=== PATIENT | female | born 1975 | race African-American/Black ===

== ENCOUNTER 2020-11-01 05:54 | Inpatient (IN) ==
[2020-11-01] MEDS ORDERED: VANCOMYCIN INJ 1,000 MG in SODIUM CHLORIDE 0.9% 250 ML IV ONE (06:30)
[2020-11-01] MEDS ORDERED: ceFAZolin 1,000 MG in SYRINGE 1 EACH IV ONE (07:30)
[2020-11-01] MEDS ORDERED: LACTATED RINGERS 1,000 ML IV SCH (07:30)
[2020-11-01] MEDS ORDERED: DIAZEPAM 5 MG TABLET PO ONE (07:57)
[2020-11-01] MEDS ORDERED: ACETAMINOPHEN 500 MG TABLET PO ONE (07:57)
[2020-11-01] MEDS ORDERED: FAMOTIDINE 20 MG TABLET PO ONE (07:57)
[2020-11-01] MEDS ORDERED: GABAPENTIN 400 MG CAPSULE PO ONE (07:57)
[2020-11-01] MEDS ORDERED: DEXAMETHASONE 4 MG/1 ML VIAL ONE (08:47)
[2020-11-01] MEDS ORDERED: DEXMEDETOMIDINE 200 MCG/2 ML VIAL ONE (08:47)
[2020-11-01] MEDS ORDERED: LIDOCAINE 1% 5 ML VIAL ONE (08:47)
[2020-11-01] MEDS ORDERED: ROPIVACAINE 0.5% 30 ML VIAL ONE (08:47)
[2020-11-01] MEDS ORDERED: MIDAZOLAM 2 MG/2 ML VIAL ONE (08:48)
[2020-11-01] MEDS ORDERED: BUPIVACAINE SPINAL 0.75% 2 ML AMP SPINAL ONE (09:12)
[2020-11-01] MEDS ORDERED: fentaNYL 100 MCG/2 ML VIAL ONE (10:52)
[2020-11-01] MEDS ORDERED: SEVOFLURANE 1 UNIT/15 MINUTE INH ONE ×4 (11:28→12:48)
[2020-11-01] MEDS ORDERED: LIDOCAINE 2% 5 ML VIAL ONE (11:28)
[2020-11-01] MEDS ORDERED: TRANEXAMIC ACID 1,000 MG/10 ML VIAL ONE (11:28)
[2020-11-01] MEDS ORDERED: propofoL 200 MG/20 ML VIAL IV ONE (11:28)
[2020-11-01] MEDS ORDERED: PHENYLEPHRINE 1 MG/10 ML SYRINGE IV ONE (11:28)
[2020-11-01] MEDS ORDERED: ROCURONIUM 50 MG/5 ML VIAL IV ONE (11:28)
[2020-11-01] MEDS ORDERED: SUCCINYLCHOLINE 200 MG/10 ML VIAL ONE (11:28)
[2020-11-01] MEDS ORDERED: ACETAMINOPHEN 1,000 MG/100 ML VIAL IV ONE ×2 (11:29→11:31)
[2020-11-01] MEDS ORDERED: LACTATED RINGERS 1,000 ML IV ONE (11:31)
[2020-11-01] MEDS ORDERED: NEOSTIGMINE 10 MG/10 ML VIAL ONE (11:44)
[2020-11-01] MEDS ORDERED: GLYCOPYRROLATE 0.4 MG/2 ML VIAL ONE (11:44)
[2020-11-01] MEDS ORDERED: PROMETHAZINE 25 MG/1 ML VIAL IM PRN (12:12)
[2020-11-01] MEDS ORDERED: diphenhydrAMINE CAP 25 MG CAPSULE PO PRN (12:12)
[2020-11-01] MEDS ORDERED: MAGNESIUM HYDROXIDE SUSP 30 ML UDCUP PO PRN (12:12)
[2020-11-01] MEDS ORDERED: BISACODYL 10 MG SUPP RECTAL PRN (12:12)
[2020-11-01] MEDS ORDERED: MORPHINE 4 MG/1 ML VIAL IV PRN ×2 (12:12→12:31)
[2020-11-01] MEDS ORDERED: ONDANSETRON 4 MG/2 ML VIAL IV PRN ×2 (12:12→12:33)
[2020-11-01] MEDS ORDERED: TEMAZEPAM 7.5 MG CAPSULE PO PRN (12:12)
[2020-11-01] MEDS ORDERED: LACTULOSE 20 GM/30 ML UDCUP PO PRN (12:12)
[2020-11-01] MEDS ORDERED: GLUCAGON 1 MG VIAL IM PRN (12:17)
[2020-11-01] MEDS ORDERED: DEXTROSE 50% 25 GM/50 ML VIAL IV PRN (12:17)
[2020-11-01 12:32] LABS: Protein,Urine Negative; Urine Appearance Clear (Clear); Urine Color Yellow (Yellow); Urine Specific Gravity 1.025 (1.001-1.035)
[2020-11-01 12:33] LABS: Bilirubin,Urine Negative (Negative); Blood, Urine Negative (Negative); Glucose,Urine (UA) 3+ mg/dL (Negative); Ketones,Urine Negative (Negative); Nitrite,Urine Negative (Negative); Urine Urobilinogen < 2.0 EU/DL (0.2-1.0)
[2020-11-01] MEDS: HYDROmorphone 2 MG/1 ML VIAL IV PRN ×4 (12:39→13:58)
[2020-11-01] MEDS: ceFAZolin 1,000 MG in SYRINGE 1 EACH IV SCH ×2 (16:40→17:40)
[2020-11-01] MEDS: INSULIN REGULAR 100 UNIT/ML SUBCUT SCH ×2 (17:40→21:30)
[2020-11-01] MEDS: DOCUSATE SODIUM 100 MG CAPSULE PO SCH (21:29)
[2020-11-01] MEDS: CITALOPRAM 20 MG TABLET PO SCH (21:29)
[2020-11-01] MEDS: GLIMEPIRIDE 2 MG TABLET PO SCH (21:29)
[2020-11-01] MEDS: FONDAPARINUX 2.5 MG/0.5 ML SYRINGE SUBCUT SCH (21:30)
[2020-11-02] MEDS: ceFAZolin 1,000 MG in SYRINGE 1 EACH IV SCH (02:50)
[2020-11-02 05:59] LABS: Basophils % 0.2 % (0.0-0.8); Eosinophils % 0.1 % (0.00-10.9); Hematocrit 34.1 VOL% (35.7-47.0); Hemoglobin 10.9 GM/DL (12.0-16.0); Immature Granulocytes % 0.6 %; Immature Granulocytes Absolute 0.08 #; Lymphocytes # 2.5 10*3/uL (1.4-4.0); Lymphocytes % 18.1 % (21.3-54.2); Mean Corpuscular Volume 93.4 FL (87-102); Mean Platelet Volume 10.1 FL (9.6-12.0); Monocytes % 6.5 % (1.7-12.7); Neutrophils % 74.5 % (38.7-73.9); Platelet Count 254 T/CUMM (130-400); Red Blood Count 3.65 MC/CUMM (3.8-5.5); Red Cell Distribution Width 12.7 % (9.3-17.3); White Blood Count 13.7 T/CUMM (4-12)
[2020-11-02 06:13] LABS: Calcium 8.1 MG/DL (8.5-10.1); Osmolality,Calculated 287.5 MOS/KG (273-304)
[2020-11-02] MEDS: GLIMEPIRIDE 2 MG TABLET PO SCH ×2 (08:21→20:52)
[2020-11-02] MEDS: CITALOPRAM 20 MG TABLET PO SCH ×2 (08:21→20:54)
[2020-11-02] MEDS: OLMESARTAN 20 MG TABLET PO SCH (08:21)
[2020-11-02] MEDS: DICLOFENAC SODIUM 75 MG TABLET PO SCH (08:21)
[2020-11-02] MEDS: DOCUSATE SODIUM 100 MG CAPSULE PO SCH ×2 (08:21→21:01)
[2020-11-02] MEDS ORDERED: MEPERIDINE 50 MG/1 ML VIAL IV PRN (08:23)
[2020-11-02] MEDS: ASPIRIN CHEW 81 MG TABLET PO SCH (08:25)
[2020-11-02] MEDS: MEPERIDINE 50 MG/1 ML VIAL IV PRN ×3 (08:35→20:56)
[2020-11-02] MEDS: INSULIN REGULAR 100 UNIT/ML SUBCUT SCH ×4 (08:40→20:54)
[2020-11-02] MEDS: LIRAGLUTIDE SUBCUT SCH (08:41)
[2020-11-02] MEDS: FONDAPARINUX 2.5 MG/0.5 ML SYRINGE SUBCUT SCH (20:52)
[2020-11-03] MEDS: MEPERIDINE 50 MG/1 ML VIAL IV PRN (02:36)
[2020-11-03] MEDS ORDERED: oxyCODONE/ACETAMINOPHEN 5-325 MG TABLET PO PRN ×2 (08:48)
[2020-11-03] MEDS: INSULIN REGULAR 100 UNIT/ML SUBCUT SCH ×3 (09:26→16:30)
[2020-11-03] MEDS: ASPIRIN CHEW 81 MG TABLET PO SCH (09:27)
[2020-11-03] MEDS: GLIMEPIRIDE 2 MG TABLET PO SCH (09:27)
[2020-11-03] MEDS: OLMESARTAN 20 MG TABLET PO SCH (09:27)
[2020-11-03] MEDS: DOCUSATE SODIUM 100 MG CAPSULE PO SCH (09:28)
[2020-11-03] MEDS: CITALOPRAM 20 MG TABLET PO SCH (09:28)
[2020-11-03] MEDS: DICLOFENAC SODIUM 75 MG TABLET PO SCH (09:29)
[2020-11-03] MEDS: LIRAGLUTIDE SUBCUT SCH (09:29)
[2020-11-03 20:36] VITALS: BP 106/69
== END 2020-11-03 17:30 | disposition home health service (06) | DRG 470 ==
LOC: N.OR 05:54 → N.SDSINP 05:57 → N.3E 15:52
PROVIDERS: ADMIT Orthopaedic Surgery; ATTEND Orthopaedic Surgery